=== PATIENT | male | born 1960 | race Caucasian/White ===

== ENCOUNTER 2021-02-06 15:17 | Inpatient (IN) | payer BC ==
[~2021-02-06] VITALS: Ht 190.5 cm; Wt 106.8 kg
[2021-02-06 16:00] LABS: BASOPHILS % (AUTO) 0.3 % (0.0-5.0); EOSINOPHILS % (AUTO) 0.2 % (0.0-8.0); HEMATOCRIT 41.2 % (42-54); MEAN CORPUSCULAR HEMOGLOBIN 28.9 pg (27.0-33.0); MEAN CORPUSCULAR HGB CONC 34.2 g/dL (32.0-36.0); MEAN CORPUSCULAR VOLUME 84.4 fL (79-99); MONOCYTES % (AUTO) 6.5 % (3.0-13.0); NEUTROPHILS % (AUTO) 86.2 % (40.0-77.0); PLATELET COUNT (AUTO) 403 K/uL (130-400); RED BLOOD CELL COUNT(AUTO) 4.88 MIL/uL (4.50-6.20); WHITE BLOOD COUNT (AUTO) 18.7 K/uL (4.8-10.8)
[2021-02-06] MEDS ORDERED: 0.9%NACL 1000ML 1,000 ML IV ONE ×2 (16:00→17:00)
[2021-02-06] MEDS ORDERED: CEFTRIAXONE 1G VIAL IVP ONE (16:00)
[2021-02-06 16:04] LABS: APPEARANCE,URINE CLOUDY (CLEAR); BILIRUBIN,URINE NEGATIVE (NEGATIVE); COLOR,URINE YELLOW (YELLOW); GLUCOSE, URINE (UA) >=1000 mg/dL (NEGATIVE); KETONES,URINE NEGATIVE (NEGATIVE); LEUKOCYTE ESTERASE ,URINE TRACE (NEGATIVE); NITRATE,URINE NEGATIVE (NEGATIVE); OCCULT BLOOD,URINE MODERATE (NEGATIVE); PH,URINE 5.5 (5.0-8.0); PROTEIN,URINE TRACE mg/dL (NEGATIVE); UROBILINOGEN,URINE 0.2 mg/dL (0.2-1.0)
[2021-02-06 16:20] LABS: ALBUMIN 2.7 g/dL (3.5-5.0); BILIRUBIN,TOTAL 0.8 mg/dL (0.2-1.0); CREATININE 1.6 mg/dL (0.5-1.5); POTASSIUM 4.3 mmol/L (3.5-5.1); TOTAL PROTEIN, SERUM 8.4 g/dL (6.0-8.3)
[2021-02-06 16:25] LABS: WBC,URINE 26-50 /HPF (0-1)
[2021-02-06 16:26] LABS: BACTERIA,URINE Few /HPF (None Seen); SQUAMOUS EPITHELIAL CELL,UR Rare /HPF (0-2)
[2021-02-06] MEDS ORDERED: INSULIN HUMULIN R 100 UNIT/ML 3ML ONE ×2 (16:40→18:52)
[2021-02-06] MEDS ORDERED: INSULIN HUMULIN R 100 UNIT/ML 3ML SQ ONE (17:00)
[2021-02-06] MEDS ORDERED: ONDANSETRON 4MG INJ IVP PRN (18:30)
[2021-02-06] MEDS ORDERED: ACETAMINOPHEN 325 MG TAB PO PRN (18:30)
[2021-02-06] MEDS ORDERED: PHENAZOPYRIDINE HCL 200 MG TABLET PO ONE (18:30)
[2021-02-06] MEDS ORDERED: ZOSYN 3.375GM+NS 50ML 3.38 GM in 0.9%NACL 50ML 50 ML IV SCH (18:30)
[2021-02-06 18:39] LABS: HEMOGLOBIN A1C 11.1 % (4.0-6.0)
[2021-02-06] MEDS ORDERED: ZOSYN 3.375GM+NS 50ML 50 ML ONE (18:52)
[2021-02-06] MEDS ORDERED: 0.9%NACL 50ML 50 ML IV ONE (18:53)
[2021-02-06 18:56] LABS: CREATININE,URINE RANDOM 50 mg/dL (30-135); SODIUM,URINE RANDOM 15 mmol/l (40-220)
[2021-02-06] MEDS: 0.9%NACL 1000ML 1,000 ML IV SCH (19:15)
[2021-02-06] MEDS: INSULIN HUMULIN R 100 UNIT/ML 3ML SQ SCH (19:16)
[2021-02-06] MEDS: ZOSYN 3.375GM +NS 50ML IV SCH (19:16)
[2021-02-06 20:10] LABS: THYROID STIMULATING HORMONE 0.68 uIU/mL (0.36-3.74)
[2021-02-06 20:17] LABS: CRP QUANTITATIVE 202.7 mg/L (0.00-9.0)
[2021-02-06 22:45] VITALS: BP 141/69
[2021-02-07] VITALS (7 sets, daily range): BP systolic 133–159; BP diastolic 66–98
[2021-02-07] MEDS: INSULIN HUMULIN R 100 UNIT/ML 3ML SQ SCH ×4 (01:03→17:57)
[2021-02-07] MEDS: ZOSYN 3.375GM +NS 50ML IV SCH ×3 (03:09→18:03)
[2021-02-07 03:56] LABS: HEMATOCRIT 39.1 % (42-54); MEAN CORPUSCULAR HEMOGLOBIN 28.5 pg (27.0-33.0); MEAN CORPUSCULAR HGB CONC 33.5 g/dL (32.0-36.0); RED BLOOD CELL COUNT(AUTO) 4.6 MIL/uL (4.50-6.20); RED CELL DISTRIBUTION WIDTH 13.1 % (11.0-15.5); WHITE BLOOD COUNT (AUTO) 16.7 K/uL (4.8-10.8)
[2021-02-07 04:10] LABS: ALBUMIN 2.3 g/dL (3.5-5.0); BILIRUBIN,TOTAL 0.7 mg/dL (0.2-1.0); CREATININE 1.2 mg/dL (0.5-1.5); TOTAL PROTEIN, SERUM 7.3 g/dL (6.0-8.3)
[2021-02-07] MEDS: 0.9%NACL 1000ML 1,000 ML IV SCH (09:42)
[2021-02-07] MEDS ORDERED: IOHEXOL 350 MG/ML 100ML INFUS..BTL IV ONE (16:16)
[2021-02-08] VITALS (7 sets, daily range): BP systolic 100–145; BP diastolic 71–94
[2021-02-08] MEDS: 0.9%NACL 1000ML 1,000 ML IV SCH ×2 (01:15→09:23)
[2021-02-08] MEDS: INSULIN HUMULIN R 100 UNIT/ML 3ML SQ SCH ×5 (01:48→20:36)
[2021-02-08] MEDS: ZOSYN 3.375GM +NS 50ML IV SCH ×3 (03:03→18:12)
[2021-02-08 04:30] LABS: HEMATOCRIT 39.8 % (42-54); MEAN CORPUSCULAR HEMOGLOBIN 28.3 pg (27.0-33.0); MEAN CORPUSCULAR HGB CONC 32.9 g/dL (32.0-36.0); RED BLOOD CELL COUNT(AUTO) 4.63 MIL/uL (4.50-6.20); RED CELL DISTRIBUTION WIDTH 13.2 % (11.0-15.5); WHITE BLOOD COUNT (AUTO) 14.9 K/uL (4.8-10.8)
[2021-02-08 04:42] LABS: POTASSIUM 4.1 mmol/L (3.5-5.1)
[2021-02-08 08:14] LABS: HEPATITIS B CORE IGM Negative (Negative); HEPATITIS Bs ANTIGEN SCREEN P Negative (Negative)
[2021-02-09] MEDS: ZOSYN 3.375GM +NS 50ML IV SCH ×2 (03:18→11:27)
[2021-02-09 03:23] VITALS: BP 136/79
[2021-02-09 07:30] VITALS: BP 124/73
[2021-02-09] MEDS: INSULIN HUMULIN R 100 UNIT/ML 3ML SQ SCH ×2 (08:46→11:28)
[2021-02-09 11:00] VITALS: BP 136/84
[2021-02-09] MEDS ORDERED: TAMSULOSIN HCL 0.4 MG CAP.ER.24H PO SCH (13:00)
[2021-02-09 13:27] LABS: BASOPHILS % (AUTO) 0.3 % (0.0-5.0); EOSINOPHILS % (AUTO) 0.4 % (0.0-8.0); HEMATOCRIT 35.7 % (42-54); LYMPHOCYTES % (AUTO) 8.7 % (21.0-51.0); MEAN CORPUSCULAR HEMOGLOBIN 28.6 pg (27.0-33.0); MEAN CORPUSCULAR HGB CONC 34.2 g/dL (32.0-36.0); MEAN CORPUSCULAR VOLUME 83.6 fL (79-99); MONOCYTES % (AUTO) 6.5 % (3.0-13.0); NEUTROPHILS % (AUTO) 83.7 % (40.0-77.0); PLATELET COUNT (AUTO) 358 K/uL (130-400); RED BLOOD CELL COUNT(AUTO) 4.27 MIL/uL (4.50-6.20); WHITE BLOOD COUNT (AUTO) 11.9 K/uL (4.8-10.8)
[2021-02-09 13:35] LABS: CREATININE 1.2 mg/dL (0.5-1.5); MAGNESIUM 1.5 mg/dL (1.80-2.40); POTASSIUM 3.9 mmol/L (3.5-5.1)
[2021-02-09] MEDS ORDERED: METF-444 PO (13:55)
[2021-02-09] MEDS ORDERED: GLIP5TAB11 PO (13:55)
[2021-02-09] MEDS ORDERED: TAMS-1 PO (13:55)
[2021-02-09] MEDS ORDERED: LEVO750T46 PO (13:55)
[2021-02-09] MEDS ORDERED: METO25 PO (13:55)
[2021-02-09 16:00] VITALS: BP 143/98
[2021-02-09] MEDS ORDERED: METFORMIN HCL 500 MG TABLET PO SCH ×2 (17:00)
[2021-02-09] MEDS ORDERED: METOPROLOL TARTRATE 25 MG TAB PO SCH ×2 (21:00)
[2021-02-10] MEDS ORDERED: GLIPIZIDE 5 MG TABLET PO SCH (07:30)
[2021-02-10 15:13] LABS: CHLAMYDIA DNA N.A.AMPLIFY Negative (Negative); GC DNA N.A. AMPLIFY Negative (Negative)
== END 2021-02-09 18:14 | disposition home or self-care (01) | DRG 871 ==
LOC: EDH 15:17 → EDHIP 15:18 → 4CH 22:44
PROVIDERS: ADMIT Internal Medicine; ATTEND Internal Medicine
DX: A41.50 Gram-negative sepsis, unspecified (principal); E43 Unspecified severe protein-calorie malnutrition; E87.1 Hypo-osmolality and hyponatremia; N13.6 Pyonephrosis; J98.11 Atelectasis; E11.65 Type 2 diabetes mellitus with hyperglycemia; Z20.822 Contact with and (suspected) exposure to COVID-19; B96.1 Klebsiella pneumoniae [K. pneumoniae] as the cause of diseases classified elsewhere; Z79.84 Long term (current) use of oral hypoglycemic drugs; Z68.29 Body mass index [BMI] 29.0-29.9, adult
CPT/HCPCS: 36415; 71045; 74176; 74400; 80048; 80053; 80074; 81001; 82010; 82570; 82948; 83036; 83605; 83735; 84100; 84145; 84300; 84443; 85025; 85027; 86140; 86701; 87040; 87071; 87077; 87088; 87186; 87205; 87390; 87486; 87635; 87797; G0378; J0696; J1815; J2543; J7030; Q9967